=== PATIENT | male | born 1975 | race Caucasian/White ===

== ENCOUNTER 2022-06-04 20:54 | Emergency (ER) | payer OTHER ==
[~2022-06-04 20:54] MED LIST: Iopamidol 370 76% 100 ML VIAL ONE
[2022-06-04 21:35] LABS: #Basophils 0.1 thou/uL (0.0-0.2); #Eosinphils 0.4 thou/uL (0.0-0.7); #Lymphocytes 2.2 thou/uL (1.20-3.40); #Monocytes 1.5 thou/uL (0.11-0.59); #Neutrophils 12.4 thou/uL (1.40-6.50); %Basophils 0.4 % (0.0-1.0); %Eosinophils 2.4 % (0.0-10.0); %Lymphocytes 13.3 % (21.0-51.0); %Monocytes 9.2 % (0.0-10.0); %Neutrophils 74.8 % (42.0-75.0); Mean Corpuscular HGB CONC 33.6 g/dL (32.0-36.0); Mean Corpuscular Hemoglobin 31.8 pg (27.0-31.0); Mean Corpuscular Volume 94.4 fL (78.0-98.0); Mean Platelet Volume 8.7 fL (7.4-10.4); Platelet Count 215 thou/uL (130-400); RBC Distribution Width 11.6 % (11.5-14.5); Red Blood Cell (RBC) Count 5.03 mill/uL (4.70-6.10); White Blood Cell (WBC) Count 16.6 thou/uL (4.8-10.8)
[2022-06-04 21:39] LABS: ALT (SGPT) 34 U/L (8-55); AST (SGOT) 20 U/L (5-34); Albumin 4.4 g/dL (3.5-5.0); Alkaline Phosphatase 89 U/L (40-110); Anion Gap 15 mmol/L (10-20); BUN (Urea Nitrogen) 9 mg/dL (8.9-20.6); Bilirubin, Total 2.5 mg/dL (0.2-1.2); Calc. Creatinine Clearance 0 mL/min (70-130); Calcium 9.5 mg/dL (7.8-10.44); Carbon Dioxide 27 mmol/L (22-29); Chloride 102 mmol/L (98-107); Estimated GFR 69; Globulin 3.3 g/dL (2.4-3.5); Glucose 101 mg/dL (70-105); Lipase 131 U/L (8-78); Potassium 3.8 mmol/L (3.5-5.1); Protein, Total 7.7 g/dL (6.0-8.3); Sodium 140 mmol/L (136-145)
[2022-06-04] MEDS ORDERED: Dicyclomine 20 MG TAB ONE (21:46)
[2022-06-04 22:53] LABS: Bacteria/HPF None Seen HPF (None Seen); Bilirubin Negative (Negative); Blood, Urine Negative (Negative); Clarity Clear (Clear); Glucose, Urine (Dipstick) Normal (Negative); Ketone, Urine Negative (Negative); Leukocyte Negative Leu/uL (Negative); Nitrite Negative (Negative); Protein, Urine (Dipstick) 50 mg/dL (Neg-Trace); RBC/HPF 0-3 HPF (0-3); Specific Gravity, Urine 1.017 (1.002-1.036); Squamous Epithelial None Seen HPF (0-3); Urobilinogen Normal mg/dL (Less than 2); WBC/HPF 0-3 HPF (0-3); pH, Urine 7.5 (5.0-9.0)
== END 2022-06-05 00:16 | disposition home or self-care (01) ==
LOC: ERS 20:54
DX: K57.32 Diverticulitis of large intestine without perforation or abscess without bleeding (principal)
CPT/HCPCS: 36415; 71045; 74177; 80053; 81003; 81015; 83690; 84484; 85025; 93005; Q9967